=== PATIENT | male | born 1955 | race Caucasian/White ===

== ENCOUNTER 2018-12-01 16:52 | Observation (INO) | payer BC, SELFPAY ==
--- NOTE | 2018-12-01 17:13 | RAD ---
XR Chest 1 View Portable History: [Chest pain] Comparison: Radiograph July 2016 Findings: Defibrillator pad projected over the chest. Lungs are mildly hypoinflated. Scarring in the lower lobes. No pneumothorax or effusion. Impression: Chronic findings. No acute intrathoracic abnormality.
[2018-12-01 17:17] LABS: Hemoglobin 16.8 g/dL (14.0-18.0); Mean Corpuscular HGB CONC 32.7 g/dL (32.0-36.0); Mean Corpuscular Hemoglobin 33.2 pg (27.0-31.0); Mean Platelet Volume 8.3 fL (7.4-10.4); Platelet Count 132 thou/uL (130-400); RBC Distribution Width 12.2 % (11.5-14.5); Red Blood Cell (RBC) Count 5.07 mill/uL (4.70-6.10)
[2018-12-01 17:33] LABS: Band 2 % (5-11); Eosinophils 1 % (0-10); Lymphocytes 55 % (21-51); MDiff Complete? YES; Monocytes 1 % (0-10); Neutrophil 38 % (42-75); Platelet Morphology Comment Appears Adequate; RBC Morphology Normal; Reactive Lymphocytes 3 % (0-10)
--- NOTE | 2018-12-01 18:25 | CT ---
CT BRAIN WITHOUT CONTRAST: 12/01/18 HISTORY: Fall, trauma, headache. FINDINGS: No evidence of infarct, hemorrhage, midline shift, or abnormal extra-axial fluid collections are seen . The ventricular size is appropriate and the basilar cisterns patent. The bony calvarium is intact. There is mucosa disease in the left maxillary sinus. IMPRESSION: No CT evidence of acute intracranial process. POS: [facility]
--- NOTE | 2018-12-01 18:36 | CT ---
CT CERVICAL SPINE WITH CORONAL AND SAGITTAL REFORMATIONS: 12/01/18 HISTORY: Fall. Neck pain. FINDINGS/IMPRESSION: Multilevel degenerative changes are present. No acute fracture, subluxation or facet malalignment is identified. POS: [facility]
[2018-12-01 19:03] LABS: Albumin 3.5 g/dL (3.4-4.8)
[2018-12-01 19:05] LABS: Calcium 9.1 mg/dL (7.8-10.44); Chloride 111 mmol/L (98-107); Potassium 4.1 mmol/L (3.5-5.1); Sodium 140 mmol/L (136-145)
[2018-12-01 19:06] LABS: Globulin 3.1 g/dL (2.4-3.5); Glucose 91 mg/dL (80-115); Protein, Total 6.6 g/dL (5.8-8.1)
[2018-12-01 19:07] LABS: Anion Gap 13 mmol/L (10-20)
[2018-12-01 19:08] LABS: Bilirubin, Total 0.2 mg/dL (0.2-1.2); Carbon Dioxide 20 mmol/L (23-31)
[2018-12-01 19:09] LABS: Alkaline Phosphatase 77 U/L (40-150); Calc. Creatinine Clearance 0 mL/min (70-130); Estimated GFR-MDRD Greater than 90
[2018-12-01 19:10] LABS: BUN (Urea Nitrogen) 13 mg/dL (8.4-25.7)
[2018-12-01 19:11] LABS: AST (SGOT) 67 U/L (5-34)
[2018-12-01 19:12] LABS: ALT (SGPT) 96 U/L (8-55)
[2018-12-01] MEDS ORDERED: Atropine Sulfate 1 mg/10 ml Syringe ONE (21:56)
[2018-12-01 22:10] LABS: Bilirubin Negative (Negative); Blood, Urine Negative (Negative); Clarity CLEAR (Clear); Glucose, Urine (Dipstick) Negative (Negative); Leukocyte Negative (Negative); Nitrite Negative (Negative); Protein, Urine (Dipstick) Negative (Neg-Trace); Specific Gravity, Urine 1.015 (1.002-1.036); Urobilinogen 0.2 mg/dL (0.2-1.0)
[2018-12-02 00:03] LABS: Troponin I 0.023 ng/mL (< 0.028)
[2018-12-02 02:23] LABS: Troponin I Less than 0.010 ng/mL (< 0.028)
[2018-12-02] MEDS ORDERED: Atropine Sulfate 1 mg/10 ml Syringe ONE (06:23)
[2018-12-02] MEDS ORDERED: Senokot S 8.6-50 MG TAB PO PRN (07:43)
[2018-12-02] MEDS ORDERED: Diabetic Tussin 200 MG/10 ML UDCUP PO PRN (07:43)
[2018-12-02] MEDS ORDERED: Cepastat Lozenges 1 LOZ PO PRN (07:43)
[2018-12-02] MEDS ORDERED: Calcium Carbonate 500 MG ChewTAB PO PRN (07:43)
[2018-12-02] MEDS ORDERED: Sodium Chloride 0.65% Nasal 44 ML BOT EA NARE PRN (07:43)
[2018-12-02] MEDS ORDERED: HYDROcodone/Acetaminophen 5/325 mg Tablet PO PRN (07:43)
[2018-12-02] MEDS ORDERED: Loperamide HCl 2 MG CAP PO PRN ×2 (07:43)
[2018-12-02] MEDS ORDERED: Bisacodyl 10 MG SUPP PR PRN (07:43)
[2018-12-02] MEDS ORDERED: Zolpidem Tartrate 5 MG TAB PO PRN (07:43)
[2018-12-02] MEDS ORDERED: Ondansetron ODT 4 MG TAB PO PRN (07:43)
[2018-12-02] MEDS ORDERED: Eucerin (Mineral Oil/Petrolatum,White) 30 gm Jar TOP PRN (07:43)
[2018-12-02] MEDS ORDERED: hydrALAZINE 20 MG/ML VIAL SLOW IVP PRN (07:43)
[2018-12-02] MEDS ORDERED: Artificial Tears 18 DROP/0.9 ML EA EYE PRN (07:43)
[2018-12-02] MEDS ORDERED: Acetaminophen 325 MG TAB PO PRN (07:43)
[2018-12-02] MEDS ORDERED: Loratadine 10 MG TAB PO PRN (07:43)
[2018-12-02] MEDS ORDERED: Ondansetron PF 4 MG/2 ML Vial IVP PRN (07:43)
[2018-12-02] MEDS ORDERED: Famotidine 20 MG TAB ONE (08:33)
[2018-12-02] MEDS: Famotidine 20 MG TAB PO SCH ×2 (08:34→20:21)
--- NOTE | 2018-12-02 13:13 | HP ---
PRIMARY CARE PHYSICIAN: [facility] Call admission. REASON FOR ADMISSION: Syncope plus symptomatic bradycardia. HISTORY OF PRESENT ILLNESS: A 63-year-old male who was at home, he reports that he was in kitchen, he went there to get a glass of water and subsequently, he does not know what happened, and he fell down on the floor. He was found by his roommate and subsequently Paramedics was called. When he was awake, at that time the patient was pale, cool, and diaphoretic. He was complaining of chest pain. As per Paramedics, his heart rate was in 40s and he was given IV fluid and atropine and Zofran. Subsequently, he was brought to ER. The patient was not having any subsequent chest pain. He did not have any this type of problem in past. He denies any dehydration. He denies any constipation, diarrhea, or seizure-like activity. He denies any UTI symptoms, fever, chills. The patient does not have any clue of what happened when he passed out, and there is no witness available at this point to get more detail history. In the emergency room, the patient's heart rate remained in 40-45. REVIEW OF SYSTEMS: CONSTITUTIONAL: Negative for weight loss or gain, ability to conduct usual activities. SKIN: Negative for rash, itching. EYES: Negative for double vision, pain. ENT/MOUTH: Negative for nose bleeding, neck stiffness, pain, tenderness. CARDIOVASCULAR: Negative for palpitations, dyspnea on exertion, orthopnea. RESPIRATORY: Negative for shortness of breath, wheezing, cough, hemoptysis, fever or night sweats. GASTROINTESTINAL: Negative for poor appetite, abdominal pain, heartburn, nausea , vomiting, constipation, or diarrhea. GENITOURINARY: Negative for urgency, frequency, dysuria, nocturia. MUSCULOSKELETAL: Negative for pain, swelling. NEUROLOGIC/PSYCHIATRIC: Negative for anxiety, depression. ALLERGY/IMMUNOLOGIC: Negative for skin rash, bleeding tendency. Please see my HPI for pertinent positive and negative. All other review of systems reviewed and negative except as mentioned in HPI. PAST MEDICAL HISTORY: Chronic hepatitis C. PAST SURGICAL HISTORY: Reviewed and negative. PAST PSYCHIATRIC HISTORY: Anxiety and depression. SOCIAL HISTORY: The patient has a history of smoking about half pack per day. He drinks alcohol socially. He also abuses marijuana. FAMILY HISTORY: No family history of sudden cardiac , coronary artery disease, stroke, or cancer. ALLERGIES: PENICILLIN. CURRENT HOME MEDICATIONS: The patient is not taking any prescribed or non-prescribed medication. EMERGENCY ROOM COURSE: The patient is given atropine, aspirin. He required 2 doses of atropine and IV fluid is also given. PHYSICAL EXAMINATION: VITAL SIGNS: Currently, blood pressure 99/50, pulse 42, respiratory rate 18, temperature 98.2, saturation 95% on room air, weight 80.5 kg. GENERAL: The patient is currently alert, awake. No obvious acute distress. HEAD: Normocephalic and atraumatic. EYES: Pupils round and reactive to light. Extraocular muscle intact. ENT: Oropharynx within normal limits. Moist mucous membranes. No oral lesion. No pharyngeal erythema. No exudate. NECK: Supple. No JVD. No thyromegaly. No carotid bruit. No jugular venous distention. LUNGS: Clear to auscultation without any rhonchi or rales. CARDIAC: S1 and S2 regular. No murmur. No gallop. No rub. ABDOMEN: Soft. Bowel sounds present. Nontender. Nondistended. No organomegaly. No mass. No suprapubic tenderness. BACK: Unremarkable. No CVA tenderness. EXTREMITIES: Upper extremities; passive movement of all joints normal. Lower extremity; no edema. Good distal pulsation. SKIN: No skin rash. HEMATOLOGICAL: No lymphadenopathy. NEUROLOGIC: Nonfocal examination. SIGNIFICANT LABORATORY DATA: CBC: WBC 8.0, hemoglobin 16.8, MCV 101, platelet 132. BMP: Sodium 140, potassium 4.1, chloride 111, carbon dioxide 20, BUN 13, creatinine 0.85, glucose 91, calcium 9.1, lactic acid 1.6. LFT: AST 67, ALT 96, albumin 3.5. Cardiac enzyme negative x3. Urinalysis normal. EKG showing normal sinus rhythm, but sinus bradycardia. Chest x-ray based on my review, no acute cardiopulmonary process. CT brain based on my review, no acute intracranial process. ASSESSMENT AND PLAN: 1. Syncope, unwitnessed, associated with sinus bradycardia and after arousal, the patient was having chest pain, suspected from cardiac etiology. At this point, we will check orthostatic vital and rule out orthostatic hypotension. We will obtain echocardiography to assess EF and other structural abnormality. Cardiology will be consulted. Meanwhile, we will continue with aspirin 81 mg p.o. daily. We will check lipid profile for risk stratification. We will monitor on telemetry floor. Further recommendation will defer to Cardiology. 2. Sinus bradycardia, symptomatic suspected. We will monitor on telemetry floor. The patient required a total of 3 doses of atropine so far. 3. Transaminitis. The patient has a history of hepatitis C, which we will confirm with hepatitis A, B, C check tomorrow. 4. Tobacco and alcohol abuse. Counseling given to avoid any illicit drugs. Healthy lifestyle measure discussed with the patient. 5. Macrocytosis. Folic acid 1 mg p.o. daily and vitamin B12 of 1000 mg p.o. daily. 6. Deep venous thrombosis prophylaxis, not needed because we are expecting discharge soon. 7. Gastrointestinal prophylaxis, Pepcid 20 mg p.o. b.i.d. CODE STATUS: The patient is full code. DISPOSITION PLAN: Based on clinical course and Cardiology recommendation. Plan of care extensively discussed with the patient in detail. Job ID: [id number] MTDD
[2018-12-02] MEDS ORDERED: Communication Order-Pharmacy FS SCH (20:45)
--- NOTE | 2018-12-03 01:38 | CON ---
DATE OF CONSULTATION: 12/02/2018 REASON FOR CONSULTATION: Syncope and chest pain. HISTORY OF PRESENT ILLNESS: Mr. Pagan is a 63-year-old gentleman. He was at home, he was walking to another room and that is the last thing he remembers, he lost consciousness. He woke up on the floor. His roommate called ambulance. He was severely bradycardic. He was brought to the emergency room. He received multiple doses of atropine with improvement in his symptoms. Heart rates were in the 42 range here. The patient thinks it was lower than in the ambulance. The patient did have some chest pain following the episode, but it got better with atropine. He said he had some chest pain today. The cardiac enzymes were negative. The patient smokes intermittently. He has had some history of chest pain. He was at [facility] about a year ago. He said they did not find a source of his pain. REVIEW OF SYSTEMS: CONSTITUTIONAL: No significant weight gain or loss. VISION: No changes. HEARING: No changes. PULMONARY: No cough or wheezing. GASTROINTESTINAL: No nausea, vomiting, or diarrhea. SKIN: No rashes. NEUROLOGIC: No unilateral weakness or numbness. PSYCHIATRIC: No unusual depression or anxiety. HEMATOLOGIC: No unusual bruising. GENITOURINARY: No burning with urination. MEDICATIONS: He is on no cardiac medicines. SOCIAL HISTORY: Uses marijuana. Drinks alcohol. Smokes half a pack of cigarettes per day. PAST PSYCHIATRIC HISTORY: Anxiety and depression. PAST MEDICAL HISTORY: Chronic hepatitis C. PHYSICAL EXAMINATION: GENERAL: This is a middle-aged gentleman, in no distress. VITAL SIGNS: Blood pressure 106/59, pulse in the 40s, it is sinus. HEENT: Eyes, sclerae are nonicteric. Mouth, mucous membranes are moist. NECK: Supple. No lymphadenopathy. LUNGS: Clear. No wheezing, rales, or rhonchi. CARDIAC: Normal S1, normal S2. There is no murmur, rub, or gallop. He is bradycardic. ABDOMEN: Soft, nontender. EXTREMITIES: No clubbing or cyanosis. There is no edema. Good peripheral pulses. PERTINENT LABORATORY DATA: AST 67, ALT is 96. Troponin levels were negative. EKG showed sinus bradycardia. No acute ischemic changes. ASSESSMENT: 1. Severe sinus bradycardia. 2. Intermittent chest pain. PLAN: I would recommend cardiac catheterization to make sure he does not have underlying coronary disease causing his bradycardia. Discussed risks of catheterization, stroke, heart attack, iodine allergy, loss of blood supply to leg or kidney, stent thrombosis, stent restenosis. He understands and wished to proceed. We will likely still need pacemaker insertion. Discussed risks including bleeding, infection in the area around the lungs. Job ID: [id number]
[2018-12-03] MEDS: Folic Acid 1 MG TAB PO SCH (05:56)
[2018-12-03] MEDS: Thiamine 100 MG TAB PO SCH (05:56)
[2018-12-03] MEDS: Famotidine 20 MG TAB PO SCH ×2 (05:57→22:22)
[2018-12-03] MEDS: Cyanocobalamin (Vitamin B-12) 1,000 MCG TAB PO SCH (05:57)
[2018-12-03] MEDS: Aspirin Chewable 81 MG TAB PO SCH (05:57)
[2018-12-03 06:11] LABS: #Basophils 0.1 thou/uL (0.0-0.2); #Eosinphils 0.1 thou/uL (0.0-0.7); #Lymphocytes 3.4 thou/uL (1.20-3.40); #Monocytes 0.6 thou/uL (0.11-0.59); #Neutrophils 3.3 thou/uL (1.40-6.50); %Basophils 1.3 % (0.0-1.0); %Eosinophils 1.4 % (0.0-10.0); %Lymphocytes 45.5 % (21.0-51.0); %Monocytes 7.8 % (0.0-10.0); Hemoglobin 16.2 g/dL (14.0-18.0); Mean Corpuscular HGB CONC 32.7 g/dL (32.0-36.0); Mean Corpuscular Hemoglobin 32.1 pg (27.0-31.0); Mean Corpuscular Volume 98.3 fL (78.0-98.0); Mean Platelet Volume 7.8 fL (7.4-10.4); Platelet Count 163 thou/uL (130-400); RBC Distribution Width 11.9 % (11.5-14.5); Red Blood Cell (RBC) Count 5.05 mill/uL (4.70-6.10); White Blood Cell (WBC) Count 7.5 thou/uL (4.8-10.8)
[2018-12-03 06:31] LABS: Anion Gap 12 mmol/L (10-20); BUN (Urea Nitrogen) 14 mg/dL (8.4-25.7); Calc. Creatinine Clearance 99 mL/min (70-130); Calcium 9.2 mg/dL (7.8-10.44); Carbon Dioxide 22 mmol/L (23-31); Cardiac Risk 8.1 (Less than 4.5); Chloride 109 mmol/L (98-107); Cholesterol 137 mg/dl (< 200 Desired); Estimated GFR-MDRD Greater than 90; Glucose 85 mg/dL (80-115); HDL Cholesterol 17 mg/dL (>60 Neg Risk); LDL Cholesterol, Calculated 98 mg/dL; Potassium 3.6 mmol/L (3.5-5.1); Sodium 139 mmol/L (136-145); Triglycerides 109 mg/dL (Less than 150)
[2018-12-03 06:51] LABS: HBCM Index 0.19 S/CO (0-0.79); HBSAg Index 0.33 S/CO (0-0.99); Hep A IgM AB Non-Reactive (NonReactive); Hep A IgM S/CO 0.22 S/CO (0-0.79); Hep B Surf Ag Non-Reactive S/CO (NonReactive); Hepatitis B Core IgM Abs Non-Reactive (NonReactive)
[2018-12-03 06:58] LABS: Hep C IgG Ab Reflex HepC Qnt (NonReactive); Hep C Index 10.08 S/CO (0-0.79)
[2018-12-03] MEDS ORDERED: Heparin 10,000 UNITS/1 ML VIAL ONE (08:38)
[2018-12-03] MEDS ORDERED: Atropine Sulfate 1 mg/10 ml Syringe ONE (09:10)
[2018-12-03] MEDS ORDERED: DOPamine 400 MG/D5W 250 ML 0 ML ONE (09:10)
[2018-12-03] MEDS ORDERED: Fentanyl 100 MCG/2 ML VIAL ONE (09:48)
[2018-12-03] MEDS ORDERED: Midazolam HCl 2 mg/2 ml Vial ONE (09:48)
[2018-12-03] MEDS: Sodium Chloride 0.9% 1,000 ML IV SCH ×3 (10:01→18:45)
[2018-12-03] MEDS ORDERED: Iopamidol 370 76% 100 ML VIAL ONE (10:20)
[2018-12-03] MEDS ORDERED: Acetaminophen/Codeine 30-300mg Tablet PO PRN ×2 (10:22)
[2018-12-03] MEDS ORDERED: Sodium Chloride 0.9% 200 ML IV PRN (10:22)
[2018-12-03] MEDS ORDERED: Nitroglycerin 0.4 MG TAB (25 Tab Bottle) SL PRN (10:22)
--- NOTE | 2018-12-03 14:20 | PRG ---
DATE OF SERVICE: 12/03/2018 SUBJECTIVE: Mr. Pagan is a pleasant 63-year-old male, who has been admitted with symptomatic sinus bradycardia after suffering a syncopal event at home. Since his admission, he has required three doses of atropine. This morning, he underwent left heart catheterization with Dr. Gilbert to rule out ischemic focused sinus bradycardia. He tolerated the procedure well, report is still pending. He has no complaints to me at this time. He denies any chest pain or shortness of breath. He has had no further syncope. He denies any nausea or vomiting. His appetite is good. No complaints to me at this time. OBJECTIVE: VITAL SIGNS: Blood pressure is 120/61, pulse is 45, O2 saturation is 93% to 96% on room air. The patient is afebrile, 97.7. GENERAL: This is a thin male, lying in bed, in no acute distress. HEENT: Head is atraumatic and normocephalic. Mucous membranes are moist. NECK: Supple. No lymphadenopathy. No JVD. Trachea is midline. CV: S1 and S2. Regular rhythm, bradycardic. No appreciable murmurs, rubs, or gallops. LUNGS: Regular respiratory rate and pattern. Overall, clear to auscultation bilaterally. ABDOMEN: Positive bowel sounds. Soft and nontender. EXTREMITIES: No edema. +2 DP pulses bilaterally. SKIN: Warm and dry. No rashes or other discoloration. NEUROLOGIC: Cranial nerves 2 through 12 grossly intact. The patient is nonfocal. LABORATORY DATA: White blood cell count 7.5, hemoglobin 16.2, hematocrit 49.6, and MCV 98.3. AST 67, ALT 96, and alkaline phosphatase 77. Troponin negative x3. Potassium 3.6, chloride 109, carbon dioxide 22, creatinine 0.85, GFR greater than 90. Cholesterol 137, LDL 98, and HDL 17. Serology is positive for hep C antibody. ASSESSMENT: 1. Syncope in the setting of profound sinus bradycardia, heart rate 30s to 50s. 2. Elevated transaminases secondary to chronic hep C. 3. Tobacco abuse. 4. Coronary artery disease PLAN: We will continue close telemetry monitoring, with permanent pacemaker planned for the near future. We will review official left heart catheterization report when available. I have counseled the patient on tobacco cessation. Further recommendations based on hospital course. Job ID: [id number] [facility]
--- NOTE | 2018-12-03 18:27 | PDOC.CTH ---
Cardiology Progress Note - Subjective Discussed pacemaker indication,procedure and risks. He agree to proceed. gjmays - Objective Vital Signs Temp Pulse Resp BP Pulse Ox 12/03/18 15:49 96.6 F L 44 L 16 137/70 95 12/03/18 10:40 97.7 F 45 L 15 120/67 93 L 12/03/18 07:17 98.3 F 44 L 14 121/64 94 L Weight 168 lb 11.2 oz 12/02/18 12/03/18 12/04/18 06:59 06:59 06:59 Intake Total 1280 840 Output Total 400 Balance 1280 440 - Physical Examination General/Neuro: alert & oriented x3 Lungs: CTA Heart: RRR Abdomen: soft - Labs Result Diagrams: 12/03/18 05:50 12/03/18 05:50 Troponin/CKMB Troponin I Less than 0.010 ng/mL (< 0.028) 12/02/18 01:47 - Assessment/Plan 1. Syncope: plan for pacemaker insertion in AM. Risks: bleeding,hemo/ pneumothorax,tamponade,infection discussed with the pt. He agrees to proceed. gjmays
[2018-12-04] MEDS ORDERED: CEFAZOLIN 2 GM in Premix Bag 1 BAG IVPB SCH (02:15)
[2018-12-04] MEDS: Sodium Chloride 0.9% 1,000 ML IV SCH ×2 (05:16→13:58)
[2018-12-04] MEDS: Folic Acid 1 MG TAB PO SCH (10:42)
[2018-12-04] MEDS: Famotidine 20 MG TAB PO SCH (10:42)
[2018-12-04] MEDS: Cyanocobalamin (Vitamin B-12) 1,000 MCG TAB PO SCH (10:42)
[2018-12-04] MEDS: Aspirin Chewable 81 MG TAB PO SCH (10:42)
[2018-12-04] MEDS: Thiamine 100 MG TAB PO SCH (10:42)
[2018-12-04] MEDS ORDERED: Vancomycin HCl 500 MG VIAL ONE ×2 (11:45→12:22)
[2018-12-04] MEDS ORDERED: Levofloxacin 500 mg/D5W 100 ml Premix Bag ONE (11:48)
[2018-12-04] MEDS ORDERED: Clindamycin/D5W 900 mg/50 ml Premix Bag ONE (11:48)
[2018-12-04] MEDS ORDERED: Midazolam HCl 2 mg/2 ml Vial ONE (12:51)
--- NOTE | 2018-12-04 14:01 | RAD ---
EXAM: XR Chest 1 View Portable PROVIDED CLINICAL HISTORY: Post cardiac device placement COMPARISON: 12/01/2018 FINDINGS: A dual lead left subclavian cardiac pacemaking device is now noted in place. No pneumothorax or pleur al effusion is seen. The cardiac silhouette and pulmonary vasculature are within normal limits. The lungs are clear. There is been no interval change from prior exam. IMPRESSION: Interval placement of a dual-lead left-sided complaining cardiac pacemaking device. No pneumothorax i s visualized.
[2018-12-04 15:55] VITALS: BP 155/87; TEMP 97.1
--- NOTE | 2018-12-04 20:01 | CCL ---
INDICATION FOR PROCEDURE: An 63-year-old patient with syncope and symptomatic bradycardia. Was advised to undergo dual-chamber pacemaker insertion. He was taken to cardiac medical laboratory technologist where he underwent the procedure today without difficulties or compl ications. He was implanted with a dual chamber pacemaker from [employer], an [employer]visa MRI compatible de vice with two screw in leads, one in the atrium and one in the ventricle. The upper rate was set at 130 the lower rate was set at 60. There were no difficulties or complications encountered. The nereyda ent was given 2 mg of IV versed for the procedure. Through the procedure was monitored by an independ ent observer present for heart rate, blood pressure and O2 saturations. He remained stable throughout the procedure without difficulties or complications.
--- NOTE | 2018-12-05 03:05 | DIS ---
DATE OF ADMISSION: 12/02/2018 DATE OF DISCHARGE: 12/04/2018 ALLERGIES: PENICILLIN. CHIEF COMPLAINT: Syncope. FINAL DIAGNOSES: 1. Syncope in the setting of profound sinus bradycardia, status post dual-chamber permanent pacemaker implantation with Dr. Rush. 2. Coronary artery disease with a 60% to 70% mid LAD lesion with moderate calcium, 55% RCA lesion, and normal left ventricular systolic function with estimated ejection fraction of 55%. 3. Elevated transaminases secondary to chronic hepatitis C and alcohol use. 4. Tobacco abuse. PROCEDURES PERFORMED: Left heart catheterization by Dr. Gilbert and dual-chamber permanent pacemaker implantation with Dr. Rush. LABORATORY RESULTS: White blood cell count 7.5, RBC 5.05, hemoglobin 16.2, hematocrit 49.6. Sodium 139, potassium 3.6, chloride 109, carbon dioxide 22, anion gap 12, BUN 14, creatinine 0.85, GFR greater than 90, lactic acid 1.6, calcium 9.1, total bilirubin 0.2, AST 67, ALT 96, alkaline phosphatase 77. Troponin was negative x3. Cholesterol 137, LDL 98, triglycerides 109, HDL 17. Urinalysis was negative. Serology was positive for hep C antibody. IMAGING RESULTS: Echocardiogram showed normal left ventricular size, ejection fraction estimated at 55% to 60%. No significant valvular disease noted. Brain CT, no CT evidence of acute intracranial process. Cervical spine CT, multilevel degenerative changes. No acute fracture, subluxation, or facet malalignment is identified. CONSULTATIONS: Dr. Rush and Dr. Gilbert of Cardiology. VITAL SIGNS: Pulse 61, blood pressure 143/84, O2 saturation 96% on room air, temp 97.6. HOSPITAL COURSE: The patient is a 63-year-old male, who was at home, when he suffered a syncopal episode. He had gotten up to get a glass of water and has no recollection of what happened next. He was found by his roommate down in the kitchen and paramedics were called. The patient did arouse on his own and per paramedics, he was pale, cool, and diaphoretic and complaining of chest pain. At that time, his heart rate was in the 40s and he was given IV fluid and atropine. He was also given Zofran. The patient was admitted for further workup and treatment. Dr. Gilbert did a left heart catheterization to rule out ischemic focus bradycardia. Calcific disease was noted as outlined above and medical therapy was recommended. The patient's heart rate remained sinus zina in the 30s to 50s. He had no further syncope during his hospitalization. Today, the patient was taken to the dental laboratory technology teacher by Dr. Rush and dual-chamber pacemaker was successfully implanted. The patient feels well today. He is seen post procedure. He denies any chest pain or shortness of breath. He denies any nausea or vomiting. He denies pain at this time from his pacemaker incision site. PHYSICAL EXAMINATION: GENERAL: The patient is awake and alert, oriented, comfortable, in no distress. HEENT: Atraumatic, normocephalic. Eye movements intact. NECK: Supple. No lymphadenopathy. No carotid bruits. RESPIRATORY: Regular respiratory rate and pattern. Clear to auscultation bilaterally. No rhonchi or wheezes. Left pacemaker incision site is well approximated. No oozing. No edema. There is some mild ecchymosis around the site. CV: S1 and S2. Regular rate and rhythm. No appreciable murmurs, rubs, or gallops. GI: Soft, nontender, normal bowel sounds. PERIPHERAL VASCULAR: Both lower extremities are warm and well perfused. There is no edema. MUSCULOSKELETAL: No joint effusion or swelling. NEUROLOGIC: Cranial nerves 2 through 12 intact. No focal deficits. SKIN: Warm and dry. No discoloration. CONDITION AT DISCHARGE: Stable. DISCHARGE MEDICATIONS: Aspirin 81 mg daily. Discharged medications were discussed at length with Dr. Gilbert. Given his elevated liver enzymes, statin will be deferred at this time. Although beta shaneka could be considered, it is unlikely that the patient will continue taking any medications on a regular basis. He has agreed to aspirin 81 mg daily. DISCHARGE DISPOSITION: Home. PLAN: The patient will continue aggressive risk factor modification. I have counseled him extensively on the importance of tobacco cessation. He has also been given post pacemaker instructions including not lifting his left arm greater than the plane of the shoulder. No heavy lifting with that arm. He will follow up with Cardiology in 2-4 weeks. All questions were answered to the patient's satisfaction. Care discussed with Dr. Rush and Dr. Gilbert, who agree with discharge at this time. His postoperative chest x-ray showed no evidence of pneumothorax. Job ID: [id number]
--- NOTE | 2018-12-05 15:36 | EKG ---
Test Reason : Blood Pressure : / mmHG Vent. Rate : 053 BPM Atrial Rate : 053 BPM P-R Int : 184 ms QRS Dur : 094 ms QT Int : 460 ms P-R-T Axes : 056 057 054 degrees QTc Int : 431 ms Sinus bradycardia Otherwise normal ECG Confirmed by ALBERTO BOGGS ([id number]), managing editor GAVINO KENT ([id number]) on 12/05/2018 3:35:46 PM Referred By: Confirmed By:ALBERTO BOGGS
[2018-12-05 19:07] LABS: Hep C PCR-Quant 9550000 IU/mL (.)
== END 2018-12-04 17:43 | disposition home or self-care (01) ==
LOC: ERS 16:52 → ERHOLD 12-02 02:03 → 2SW 12-02 14:16
PROVIDERS: ADMIT Family Medicine; ATTEND Family Medicine
PROC: 4A023N7 Measurement of Cardiac Sampling and Pressure, Left Heart, Percutaneous Approach (ICD-10-PCS; principal; 2018-12-03)
PROC: B2111ZZ Fluoroscopy of Multiple Coronary Arteries using Low Osmolar Contrast (ICD-10-PCS; 2018-12-03)
PROC: 0JH607Z Insertion of Cardiac Resynchronization Pacemaker Pulse Generator into Chest Subcutaneous Tissue and Fascia, Open Approach (ICD-10-PCS; 2018-12-04)
PROC: 02H63JZ Insertion of Pacemaker Lead into Right Atrium, Percutaneous Approach (ICD-10-PCS; 2018-12-04)
PROC: 02HK3JZ Insertion of Pacemaker Lead into Right Ventricle, Percutaneous Approach (ICD-10-PCS; 2018-12-04)
DX: R55 Syncope and collapse (principal); R00.1 Bradycardia, unspecified; R07.9 Chest pain, unspecified; E78.00 Pure hypercholesterolemia, unspecified; E78.5 Hyperlipidemia, unspecified; I25.10 Atherosclerotic heart disease of native coronary artery without angina pectoris; I25.84 Coronary atherosclerosis due to calcified coronary lesion; B18.2 Chronic viral hepatitis C; F41.9 Anxiety disorder, unspecified; F32.9 Major depressive disorder, single episode, unspecified; F17.210 Nicotine dependence, cigarettes, uncomplicated; F10.10 Alcohol abuse, uncomplicated; D75.89 Other specified diseases of blood and blood-forming organs; Z88.0 Allergy status to penicillin; W19.XXXA Unspecified fall, initial encounter
CPT/HCPCS: 33208; 36415; 70450; 71045; 72125; 76942; 80048; 80053; 80061; 80074; 81003; 83605; 84484; 85025; 87086; 87522; 93005; 93306; 93458; 94760; 96361; 96374; 96376; 99152; 99153; C1769; C1785; C1898; G0378; J0461; J1265; J1644; J1956; J2250; J3010; J3370; J3490; Q9967

== ENCOUNTER 2024-08-07 10:05 | Observation (INO) | payer SELFPAY ==
[2024-08-07] MEDS ORDERED: Ipratropium/Albuterol 3 ML NEB ONE (10:26)
[2024-08-07 10:51] LABS: #Basophils 0.04 10x3/uL (0.0-0.2); %Basophils 0.3 % (0.0-1.0); %Eosinophils 1.3 % (0.0-10.0); %Lymphocytes 24.7 % (21.0-51.0); %Monocytes 4.9 % (0.0-10.0); %Neutrophils 68.4 % (42.0-75.0); Hematocrit 46.5 % (42.0-52.0); Hemoglobin 16.1 g/dL (14.0-18.0); Mean Corpuscular HGB CONC 34.6 g/dL (32.0-36.0); Mean Corpuscular Volume 98.3 fL (78.0-98.0); Mean Platelet Volume 9.1 fL (7.4-10.4); Platelet Count 176 10x3/uL (130-400); RBC Distribution Width 12.9 % (11.5-14.5); Red Blood Cell (RBC) Count 4.73 mill/uL (4.70-6.10)
[2024-08-07] MEDS ORDERED: Iopamidol-370 76% 500 ML MDV (1 ML CHARGE) ONE (11:08)
[2024-08-07 11:12] LABS: ALT (SGPT) 64 U/L (8-55); AST (SGOT) 50 U/L (5-34); Albumin 3.3 g/dL (3.4-4.8); Alkaline Phosphatase 47 U/L (40-110); Anion Gap 14 mmol/L (10-20); BUN (Urea Nitrogen) 8 mg/dL (8.4-25.7); Bilirubin, Total 0.4 mg/dL (0.2-1.2); Calc. Creatinine Clearance 0 mL/min (70-130); Calcium 9.1 mg/dL (7.8-10.44); Carbon Dioxide 21 mmol/L (23-31); Chloride 106 mmol/L (98-107); Estimated GFR 97; Globulin 3.5 g/dL (2.4-3.5); Glucose 134 mg/dL (80-115); Potassium 3.6 mmol/L (3.5-5.1); Protein, Total 6.8 g/dL (5.8-8.1); Sodium 137 mmol/L (136-145)
[2024-08-07 11:13] LABS: Troponin I Less than 0.010 ng/mL (< 0.028)
[2024-08-07] MEDS ORDERED: Acetaminophen 325 MG TAB PO PRN (13:52)
[2024-08-07] MEDS ORDERED: Nitroglycerin 0.4 MG TAB (25 Tab Bottle) SL PRN (13:52)
[2024-08-07 14:20] LABS: Troponin I Less than 0.010 ng/mL (< 0.028)
[2024-08-07 17:34] LABS: Troponin I Less than 0.010 ng/mL (< 0.028)
[2024-08-07] MEDS: Nitroglycerin 2% Ointment 1 INCH/1 GM Packet TOP SCH (18:02)
[2024-08-07 18:11] VITALS: BMI 18.4
[2024-08-08 05:30] LABS: #Basophils 0.04 10x3/uL (0.0-0.2); %Basophils 0.5 % (0.0-1.0); %Eosinophils 2.1 % (0.0-10.0); %Lymphocytes 45.4 % (21.0-51.0); %Neutrophils 43.7 % (42.0-75.0); Anion Gap 14 mmol/L (10-20); BUN (Urea Nitrogen) 12 mg/dL (8.4-25.7); Calc. Creatinine Clearance 88 mL/min (70-130); Calcium 8.9 mg/dL (7.8-10.44); Carbon Dioxide 20 mmol/L (23-31); Chloride 110 mmol/L (98-107); Cholesterol 197 mg/dl (< 200 Desired); Estimated GFR 102; Glucose 94 mg/dL (80-115); HDL Cholesterol 28 mg/dL (>60 Neg Risk); Hematocrit 46.5 % (42.0-52.0); LDL Cholesterol, Calculated 135 mg/dL; Mean Corpuscular HGB CONC 34.4 g/dL (32.0-36.0); Mean Corpuscular Hemoglobin 33.6 pg (27.0-31.0); Mean Corpuscular Volume 97.7 fL (78.0-98.0); Mean Platelet Volume 9.6 fL (7.4-10.4); Platelet Count 190 10x3/uL (130-400); Potassium 3.9 mmol/L (3.5-5.1); RBC Distribution Width 13.2 % (11.5-14.5); Red Blood Cell (RBC) Count 4.76 mill/uL (4.70-6.10); Sodium 140 mmol/L (136-145); Triglycerides 168 mg/dL (Less than 150)
[2024-08-08 08:41] VITALS: TEMP 98.4
[2024-08-08] MEDS: Enoxaparin 40 MG (0.4 mL) SYRINGE SC SCH (09:00)
[2024-08-08] MEDS: Aspirin 81 mg Enteric Coated Tablet PO SCH (09:00)
[2024-08-08] MEDS ORDERED: Regadenoson 0.4 MG/5 ML SYRINGE ONE (09:31)
[2024-08-08 12:00] VITALS: BP 129/77
[2024-08-08] MEDS ORDERED: Atorvastatin Calcium 40 MG TAB PO SCH (21:00)
== END 2024-08-08 14:55 | disposition home or self-care (01) ==
LOC: ERS 10:05 → ERHOLD 13:31 → OBS 15:50
PROVIDERS: ADMIT Internal Medicine; ATTEND Hospitalist
DX: R07.9 Chest pain, unspecified (principal); B19.20 Unspecified viral hepatitis C without hepatic coma; F17.200 Nicotine dependence, unspecified, uncomplicated; F12.90 Cannabis use, unspecified, uncomplicated; Z95.0 Presence of cardiac pacemaker; Z91.030 Bee allergy status; Z88.0 Allergy status to penicillin; Z79.82 Long term (current) use of aspirin; Z79.899 Other long term (current) drug therapy
CPT/HCPCS: 36415; 71045; 71275; 78452; 80048; 80053; 80061; 83880; 84484; 85025; 93005; 93017; 94760; A9502; G0378; J2785; J7620; Q9967

== ENCOUNTER 2025-04-07 23:44 | Emergency (ER) | payer MEDICARE ==
[2025-04-07 23:58] LABS: Actual Bicarbonate (HCO3v) 18.6 mEq/L (22-28); Base Excess -3.1 mEq/L (-2.0 to +3.0); Chloride (VBG) 104 mmol/L (98-106); Hematocrit-VBG 49 % (42.0-52.0); Hemoglobin (Hb) 16.7 g/dL (12.6-17.4); Potassium (VBG) 3.86 mmol/L (3.70-5.30); Sodium 140 mmol/L (133-146)
[2025-04-07 23:59] LABS: Calcium, Ionized (venous) 0.73 mmol/L (1.16-1.32)
[2025-04-08 00:08] LABS: #Basophils 0.04 10x3/uL (0.0-0.2); #Eosinophils 0.17 10x3/uL (0.0-0.7); #Monocytes 0.67 10x3/uL (0.11-0.59); #Neutrophils 4.16 10x3/uL (1.40-6.50); %Basophils 0.5 % (0.0-1.0); %Eosinophils 2.3 % (0.0-10.0); %Lymphocytes 31.3 % (21.0-51.0); %Monocytes 9.1 % (0.0-10.0); %Neutrophils 56.4 % (42.0-75.0); Hematocrit 46.7 % (42.0-52.0); Hemoglobin 15.5 g/dL (14.0-18.0); Mean Corpuscular Hemoglobin 30.5 pg (27.0-31.0); Mean Corpuscular Volume 91.7 fL (78.0-98.0); Platelet Count 219 10x3/uL (130-400); Red Blood Cell (RBC) Count 5.09 mill/uL (4.70-6.10); White Blood Cell (WBC) Count 7.38 10x3/uL (4.8-10.8)
[2025-04-08 00:29] LABS: Acetaminophen Less than 10 mcg/mL (Less than 10); Salicylate Less than 8.0 mg/dL (Less than 8.0)
[2025-04-08 02:09] LABS: Bacteria/HPF None Seen HPF (None Seen); CAUTI Indications for Culture Alt mental st,lethar; Glucose, Urine (Dipstick) Normal (Negative); Leukocyte Negative Leu/uL (Negative); Protein, Urine (Dipstick) Negative (Neg-Trace); RBC/HPF None Seen HPF (0-3); Specific Gravity, Urine 1.007 (1.002-1.036); WBC/HPF 0-3 HPF (0-3)
[2025-04-08 02:15] LABS: Cocaine Metabolite Screen Negative (Negative); THC/Cannabinoid Screen PRELIM POSITIVE (Negative); Tricyclic Screen Negative (Negative); Urine Culture Reflex No No
[2025-04-08 02:23] LABS: ALT (SGPT) 16 U/L (Less than 45); AST (SGOT) 24 U/L (11-34); Albumin 3.5 g/dL (3.1-4.5); Alkaline Phosphatase 42 U/L (40-110); Anion Gap 14 mmol/L (10-20); BUN (Urea Nitrogen) 14 mg/dL (8.4-25.7); Bilirubin, Total 0.3 mg/dL (0.3-1.2); CK (CPK) 82 U/L (30-200); Calc. Creatinine Clearance 0 mL/min (70-130); Calcium 8.5 mg/dL (7.8-10.44); Carbon Dioxide 20 mmol/L (23-31); Chloride 108 mmol/L (98-107); Globulin 3.3 g/dL (2.4-3.5); Glucose 99 mg/dL (80-115); Potassium 3.7 mmol/L (3.5-5.1); Sodium 138 mmol/L (136-145)
== END 2025-04-08 04:54 | disposition home or self-care (01) ==
LOC: ERS 23:44
DX: R41.82 Altered mental status, unspecified (principal); T50.905A Adverse effect of unspecified drugs, medicaments and biological substances, initial encounter; I49.9 Cardiac arrhythmia, unspecified; F17.210 Nicotine dependence, cigarettes, uncomplicated; Z95.0 Presence of cardiac pacemaker; Z79.82 Long term (current) use of aspirin; Z79.899 Other long term (current) drug therapy
CPT/HCPCS: 70450; 71045; 80053; 80306; 80307; 81001; 82550; 82805; 83605; 84443; 84484; 85025; 87040; 87086; 94760; 96360